=== PATIENT | female | born 1970 | race Hispanic/Latino ===

== ENCOUNTER 2019-07-10 06:10 | Day surgery (SDC) | payer OTHER ==
[2019-07-10] VITALS (9 sets, daily range): BP systolic 134–156; BP diastolic 72–84
[~2019-07-10] VITALS: Ht 165.1 cm; Wt 70.2 kg
[2019-07-10] MEDS ORDERED: SODIUM CHLORIDE 0.9% 1000ML 1,000 ML IV ONE (06:25)
--- NOTE | 2019-07-10 06:30 | NUR ---
PREOP PT ARRIVED AMBULATORY IN NO DISTRESS. PT ORIENTED TO ROOM, CALL LIGHT WITH IN REACH AND CONNECTED TO GAGGERMAN. PT HAS PERMA CATH TO RT UPPER CHEST WALL WITH LINE SECURED AND DRESSING INTACT.
[2019-07-10] MEDS ORDERED: ATOR20TA65 PO (07:04)
[2019-07-10] MEDS ORDERED: FURO40TA5 PO (07:04)
[2019-07-10] MEDS ORDERED: levemir SQ (07:04)
[2019-07-10] MEDS ORDERED: HYDR-4154 PO (07:08)
[2019-07-10] MEDS ORDERED: vitamin d2 PO (07:08)
[2019-07-10] MEDS ORDERED: SEVE800T7 PO (07:08)
[2019-07-10] MEDS ORDERED: DILT120T PO (07:08)
[2019-07-10] MEDS ORDERED: MODA200T48 PO (07:08)
[2019-07-10 07:12] LABS: EOSINOPHILS % (AUTO) 7.4 % (0.0-8.0); HEMATOCRIT 38.7 % (36-48); LYMPHOCYTES % (AUTO) 19.2 % (21.0-51.0); MEAN CORPUSCULAR HEMOGLOBIN 28.5 pg (27.0-33.0); MEAN CORPUSCULAR HGB CONC 30.2 g/dL (32.0-36.0); MEAN CORPUSCULAR VOLUME 94.2 fL (79-99); MONOCYTES % (AUTO) 7.3 % (3.0-13.0); NEUTROPHILS % (AUTO) 64.7 % (40.0-77.0); PLATELET COUNT (AUTO) 218 K/uL (130-400); RED BLOOD CELL COUNT(AUTO) 4.11 MIL/uL (4.00-5.50); RED CELL DISTRIBUTION WIDTH 16.2 % (11.0-15.5); WHITE BLOOD COUNT (AUTO) 8.1 K/uL (4.8-10.8)
[2019-07-10 07:23] LABS: INR 0.91 (0.85-1.15); PARTIAL THROMBOPLASTIN TIME 26.8 SEC (26.3-35.5); PROTHROMBIN TIME 9.9 SEC (9.6-11.6)
[2019-07-10 07:24] LABS: CREATININE 7.4 mg/dL (0.5-1.5); POTASSIUM 4.5 mmol/L (3.5-5.1)
--- NOTE | 2019-07-10 07:30 | NUR ---
UA PT IS RENAL AND VOIDS VERY LITTLE SO WAS NOT ABLE TO COLLECT URINE.
--- NOTE | 2019-07-10 07:35 | NUR ---
cath pt taken to landscaping and groundskeeping laborer via bed by michaela pretyt rn. pt in no distress
[2019-07-10] MEDS ORDERED: HEPARIN SODIUM 1000UNIT/ML 10ML VIAL ONE (07:48)
[2019-07-10] MEDS ORDERED: IOHEXOL 350 MG/ML 100ML INFUS..BTL IV ONE (07:48)
[2019-07-10] MEDS ORDERED: IOHEXOL-350 50ML VIAL IV ONE (07:48)
[2019-07-10] MEDS ORDERED: NITROGLYCERIN 2 MG/VIAL VIAL IV ONE (07:48)
[2019-07-10] MEDS ORDERED: MIDAZOLAM HCL 1 MG/ML 2ML VIAL ONE (07:49)
[2019-07-10] MEDS ORDERED: LIDOCAINE HCL 2% 20ML ONE (07:49)
[2019-07-10] MEDS ORDERED: FENTANYL CITRATE PF 50 MCG/1 ML 2ML VIAL ONE (07:49)
--- NOTE | 2019-07-10 09:10 | NUR ---
pain rt groin tender with palpation Addendum: 07/10/19 at 0922 by SILKE CERRATO RN RN Amended: Links added.
--- NOTE | 2019-07-10 09:10 | NUR ---
post cath pt transported via bed by michaela mckenna and da mckenna. pt in no distress in supine position. as per da mckenna pt c/o tenderness to rt groin but pt free from hematoma or bleeding. pt connected to charter boat operator.
--- NOTE | 2019-07-10 12:10 | NUR ---
discharge pt and son isabel roman given discharge instructions, cd and clearance. both voiced understanding. pt taken out via w/c by james salomon rn in no distress
== END 2019-07-10 12:10 | disposition home or self-care (01) ==
LOC: CLH 06:10 → DAH 06:10 → CLH 12:10
PROVIDERS: ATTEND Internal Medicine Cardiovascular Disease
DX: R94.39 Abnormal result of other cardiovascular function study (principal); I25.10 Atherosclerotic heart disease of native coronary artery without angina pectoris; I12.0 Hypertensive chronic kidney disease with stage 5 chronic kidney disease or end stage renal disease; E11.22 Type 2 diabetes mellitus with diabetic chronic kidney disease; N18.6 End stage renal disease; E78.5 Hyperlipidemia, unspecified; G47.419 Narcolepsy without cataplexy; Z99.2 Dependence on renal dialysis; Z82.49 Family history of ischemic heart disease and other diseases of the circulatory system; Z83.3 Family history of diabetes mellitus; Z79.899 Other long term (current) drug therapy
CPT/HCPCS: 36415; 71045; 80048; 82948 ×2; 85025; 85610; 85730; 93005; 93458; A4215; A4216; A4221; A4222; A4223 ×3; A4606; A4663; C1760; C1894 ×2; J1644; J2250; J3010; J3490; J7030 ×2; Q9965; Q9967; 99156; 99157